=== PATIENT | male | born 1975 | race Caucasian/White ===

== ENCOUNTER 2023-08-23 09:21 | Emergency (ER) | payer OTHER ==
--- NOTE | 2023-08-23 09:42 | ED ---
Fall HPI - General Chief Complaint: Fall Stated Complaint: Fall Time Seen by Provider: 08/23/23 09:23 Source: patient, EMS, RN notes reviewed Mode of arrival: EMS Limitations: no limitations - History of Present Illness Initial Comments: 47-year-old male presents emergency department from [facility] for evaluation of a fall. He states he was in the shower states he slipped he was complaining of neck pain and refused c-collar. Patient was sent here for evaluation he states has been there on day 2 alcohol abuse on Ativan. Patient states that he does not have a current complaint of chest pain shortness of breath headache abdominal pain nausea vomiting. - Related Data Allergies Allergy/AdvReac Type Severity Reaction Status Date / Time No Known Allergies Allergy Verified 08/23/23 09:30 Review of Systems ROS Statement: Those systems with pertinent positive or pertinent negative responses have been documented in the HPI. ROS Other: All systems not noted in ROS Statement are negative. Past Medical History Past Medical History: No Reported History History of Any Multi-Drug Resistant Organisms: None Reported Past Surgical History: No Surgical Hx Reported Smoking Status: Current every day smoker Past Alcohol Use History: Abuse Past Drug Use History: None Reported General Exam Limitations: no limitations General appearance: alert, in no apparent distress Head exam: Present: atraumatic, normocephalic, normal inspection Eye exam: Present: normal appearance, PERRL, EOMI. Absent: scleral icterus, conjunctival injection, periorbital swelling ENT exam: Present: normal exam, normal oropharynx, mucous membranes moist Neck exam: Present: normal inspection, full ROM. Absent: tenderness, meningi smus, lymphadenopathy Respiratory exam: Present: normal lung sounds bilaterally. Absent: respiratory distress, wheezes, rales, rhonchi, stridor Cardiovascular Exam: Present: regular rate, normal rhythm, normal heart sounds. Absent: systolic murmur, diastolic murmur, rubs, gallop, clicks GI/Abdominal exam: Present: soft, normal bowel sounds. Absent: distended, tenderness, guarding, rebound, rigid Extremities exam: Present: normal inspection, full ROM, normal capillary refill. Absent: tenderness, pedal edema, joint swelling, calf tenderness Neurological exam: Present: alert, oriented X3 Course Vital Signs 08/23/23 08/23/23 09:23 11:16 Temperature 98 F Pulse Rate 81 74 Respiratory 18 16 Rate Blood Pressure 145/94 153/98 O2 Sat by Pulse 96 99 Oximetry Medical Decision Making - Medical Decision Making Was pt. sent in by a medical professional or institution ([facility], [employer] TEACHER, urgent care, hospital, or alf...) When possible be specific @ -[facility] Did you speak to anyone other than the patient for history (EMS, parent, family, police, friend...)? What history was obtained from this source @ -No Did you review nursing and triage notes (agree or disagree)? Why? @ -I reviewed and agree with nursing and triage notes Were old charts reviewed (outside hosp., previous admission, EMS record, old EKG, old radiological studies, urgent care reports/EKG's, alf records)? Report findings @ -No old charts were reviewed Differential Diagnosis (chest pain, altered mental status, abdominal pain women, abdominal pain men, vaginal bleeding, weakness, fever, dyspnea, syncope, headache, dizziness, GI bleed, back pain, seizure, CVA, palpatations, mental health, musculoskeletal)? @ -Fall, alcohol withdrawal, alcohol abuse, head injury, cervical fracture/pain EKG interpreted by me (3pts min.). @ -None X-rays interpreted by me (1pt min.). @ -None done CT interpreted by me (1pt min.). @ -CT head, C-spine showing no acute intracranial hemorrhage or mass effect no cervical fracture U/S interpreted by me (1pt. min.). @ -None done What testing was considered but not performed or refused? (CT, X-rays, U/S, labs)? Why? @ -None What meds were considered but not given or refused? Why? @ -None Did you discuss the management of the patient with other professionals (professionals i.e. [facility], OPTOMETRY TEACHER, lab, RT, psych nurse, social staff worker, sales operations coordinator, teacher, youth officer, caser)? Give summary @ -No Was smoking cessation discussed for >3mins.? @ -No Was critical care preformed (if so, how long)? @ -No Were there social determinants of health that impacted care today? How? (Homelessness, low income, unemployed, alcoholism, drug addiction, transportation, low edu. Level, literacy, decrease access to med. care, intermediate, rehab)? @ -No Was there de-escalation of care discussed even if they declined (Discuss DNR or withdrawal of care, Hospice)? DNR status @ -No What co-morbidities impacted this encounter? (DM, HTN, Smoking, COPD, CAD, Cancer, CVA, ARF, Chemo, Hep., AIDS, mental health diagnosis, sleep apnea, morbid obesity)? @ -Alcohol abuse Was patient admitted / discharged? Hospital course, mention meds given and route, prescriptions, significant lab abnormalities, going to OR and other pertinent info. @ -Urged back to [facility] imaging was negative patient has no other complaints patient is awake alert and orientated he is able to ambulate he does have mild withdrawal symptoms though he has been on Ativan states he has not received his most recent dose he has no hallucination no significant elevated CIWA Undiagnosed new problem with uncertain prognosis? @ -No Drug Therapy requiring intensive monitoring for toxicity (Heparin, Nitro, Insulin, Cardizem)? @ -No Were any procedures done? @ -No Diagnosis/symptom? @ -Fall Acute, or Chronic, or Acute on Chronic? @ -Acute Uncomplicated (without systemic symptoms) or Complicated (systemic symptoms)? @ -Uncomplicated Side effects of treatment? @ -No Exacerbation, Progression, or Severe Exacerbation? @ -No Poses a threat to life or bodily function? How? (Chest pain, USA, MS, pneumonia, PE, COPD, DKA, ARF, appy, cholecystitis, CVA, Diverticulitis, Homicidal, Yeung icidal, threat to staff... and all critical care pts) @ -No Disposition Clinical Impression: Fall Disposition: HOME SELF-CARE Condition: Stable Additional Instructions: Please return to the Emergency Department if symptoms worsen or any other concerns. Is patient prescribed a controlled substance at d/c from ED?: No Referrals: None,Stated [Primary Care Provider] - 1-2 days Time of Disposition: 10:28
[2023-08-23 09:57] VITALS: TEMP 98
--- NOTE | 2023-08-23 10:06 | CT ---
EXAMINATION TYPE: CT brain cspine wo con CT DLP: 1465.9 mGycm, Automated exposure control for dose reduction was used. DATE OF EXAM: 08/23/2023 9:50 AM COMPARISON: None. CLINICAL INDICATION:Male, 47 years old with history of trauma; FALL TECHNIQUE: Brain: Multiple axial CT images of the brain were obtained without IV contrast. Cspine: Axial CT images from the skull base to the inferior aspect of T2 we obtained without intraven ous contrast. Coronal and sagittal reformatted images were also reviewed. FINDINGS: Brain: Extra-axial spaces: No abnormal extra-axial fluid collections. Ventricular system: Within normal limits cavum septum pellucidum. Cerebral parenchyma: No acute intraparenchymal hemorrhage or mass effect. The cason-white junction is well differentiated. Cerebellum: Unremarkable. Mass effect: No evidence of midline shift. Intracranial vasculature: unremarkable Soft tissues: Normal. Calvarium/osseous structures: No depressed skull fracture. Paranasal sinuses and mastoid air cells: Mild mucosal thickening of the maxillary sinuses. Visualized orbits: Orbital contents are intact. Cervical spine: Fracture: None. Osseous structures: Multilevel degenerative disc disease changes with endplate spurring and disc oste ophyte complex's. Vertebral alignment: Within normal limits. Spinal canal/Neural Foramina: Disc osteophyte complexes at C5-C7 with at least mild spinal canal sten osis. No evidence for significant neural foraminal stenosis. Neck soft tissues: Prevertebral soft tissues are within normal limits. Other: The airway is patent. Atherosclerosis of the carotid bifurcations. IMPRESSION: 1. No acute intracranial process. 2. No evidence of cervical spine fracture. 3. Moderate degenerative disc C5-C6 and C7.
[2023-08-23] MEDS: LORazepam 1 MG TAB PO STA (11:04)
[2023-08-23 11:29] VITALS: BP 153/98; PULSE 74; RESP 16
== END 2023-08-23 11:18 | disposition home or self-care (01) ==
LOC: EC 09:21
DX: M54.2 Cervicalgia (principal); F17.200 Nicotine dependence, unspecified, uncomplicated; W01.0XXA Fall on same level from slipping, tripping and stumbling without subsequent striking against object, initial encounter
CPT/HCPCS: 70450; 72125; 99284

== ENCOUNTER → 2024-10-20 | Outpatient (CLI) | payer OTHER ==
--- NOTE | 2024-10-20 13:09 | XR ---
EXAMINATION TYPE: XR lumbar spine 2 or 3V DATE OF EXAM: 10/20/2024 CLINICAL HISTORY: pain TECHNIQUE: Three views of the lumbar spine are submitted. COMPARISON: None. FINDINGS: There are 5 lumbar type vertebral bodies identified. The lumbar spine shows satisfactory alignment w ithout evidence of acute fracture or dislocation. Vertebral body heights are within normal limits. Disc spaces are within normal limits. The overlying soft tissue appears unremarkable. IMPRESSION: No acute fracture or dislocation is seen in the lumbar spine. [facility], , 10/20/2024 1:07 PM
== END | disposition home or self-care (01) ==
LOC: RADXRMAIN 12:35
PROVIDERS: ATTEND Emergency Medicine
DX: S39.012A Strain of muscle, fascia and tendon of lower back, initial encounter (principal); R20.9 Unspecified disturbances of skin sensation
CPT/HCPCS: 72100

== ENCOUNTER → 2024-10-27 | Outpatient (CLI) | payer OTHER ==
--- NOTE | 2024-10-27 13:50 | XR ---
EXAMINATION TYPE: XR cervical spine comp DATE OF EXAM: 10/27/2024 1:38 PM COMPARISON: None CLINICAL INDICATION: Male, 48 years old with history of M54.2 CERVICALGIA R20.9 UNSPECIFIED DISTURBAN ARIELLA O; [facility], pain TECHNIQUE: The cervical spine was imaged in frontal, lateral, odontoid and bilateral oblique. FINDINGS: The osseous structures show normal alignment without evidence of an acute fracture. There are osteoph ytes noted at C5-C6 and C7 in the cervical spine on the anterior and lateral aspects of the vertebral bodies. The intervertebral disk spaces are narrowed at multiple levels. Pedicles are intact. Soft t issues are within normal limits. The odontoid appears intact. IMPRESSION: 1. No fracture or dislocation. 2. Mild degenerative disc disease changes of the cervical spine. [facility], , 10/27/2024 1:47 PM
== END | disposition home or self-care (01) ==
LOC: RADXRMAIN 13:17
PROVIDERS: ATTEND Emergency Medicine
DX: M50.30 Other cervical disc degeneration, unspecified cervical region (principal); R20.9 Unspecified disturbances of skin sensation
CPT/HCPCS: 72050